=== PATIENT | male | born 1985 | race Caucasian/White ===

== ENCOUNTER 2018-05-16 08:14 | Emergency (ER) | payer OTHER, MEDICAID | END 2018-05-16 08:47 | disposition home or self-care (01) | LOC: FTE 08:14 | DX: J02.9 Acute pharyngitis, unspecified (principal); F17.210 Nicotine dependence, cigarettes, uncomplicated | CPT/HCPCS: 99283; Z7502 ==

== ENCOUNTER 2018-08-11 18:26 | Emergency (ER) | payer SELFPAY, OTHER | END 2018-08-11 19:35 | disposition left against medical advice (07) | LOC: E/R 18:26 | DX: Z53.21 Procedure and treatment not carried out due to patient leaving prior to being seen by health care provider (principal) | CPT/HCPCS: 93005 ==

== ENCOUNTER 2018-09-05 10:01 | Emergency (ER) | payer OTHER | END 2018-09-05 11:29 | disposition home or self-care (01) | LOC: FTE 10:01 | DX: J32.9 Chronic sinusitis, unspecified (principal); J06.9 Acute upper respiratory infection, unspecified | CPT/HCPCS: 99283; Z7502 ==